=== PATIENT | female | born 1995 | race Caucasian/White ===

== ENCOUNTER 2021-12-17 18:56 | Emergency (ER) | payer OTHER, SELFPAY | END 2021-12-17 23:15 | disposition home or self-care (01) | LOC: CSHERS 18:56 | DX: O20.0 Threatened abortion (principal); O99.331 Smoking (tobacco) complicating pregnancy, first trimester; F17.290 Nicotine dependence, other tobacco product, uncomplicated; Z3A.10 10 weeks gestation of pregnancy | CPT/HCPCS: 36415; 76856; 84702; 93976 ==

== ENCOUNTER 2022-06-30 10:08 | Inpatient (IN) | payer OTHER ==
[2022-06-30] MEDS ORDERED: NS w/ Oxytocin 30 units 500 ML IV SCH ×3 (11:02→19:16)
[2022-06-30] MEDS ORDERED: Misoprostol 200 MCG TAB PR PRN ×2 (11:02→19:16)
[2022-06-30] MEDS ORDERED: Zolpidem Tartrate 5 MG TAB PO PRN (11:02)
[2022-06-30] MEDS ORDERED: Lidocaine 1% (PF) 30 ML VIAL SC PRN (11:02)
[2022-06-30] MEDS ORDERED: hydrALAZINE 20 MG/ML VIAL SLOW IVP PRN ×2 (11:02→19:16)
[2022-06-30] MEDS ORDERED: Docusate 100 MG CAP PO PRN (11:02)
[2022-06-30] MEDS ORDERED: Ibuprofen 800 MG TAB PO PRN (11:02)
[2022-06-30] MEDS ORDERED: Butorphanol Tartrate 1 MG/ML VIAL SLOW IVP PRN (11:02)
[2022-06-30] MEDS ORDERED: Carboprost 250 MCG/ML AMP IM PRN (11:02)
[2022-06-30] MEDS ORDERED: Lactated Ringer's 1,000 ML IV SCH (11:02)
[2022-06-30] MEDS ORDERED: HYDROcodone/Acetaminophen 5/325 mg Tablet PO PRN ×2 (11:02)
[2022-06-30] MEDS ORDERED: Acetaminophen 500 MG TAB PO PRN (11:02)
[2022-06-30] MEDS ORDERED: Diphenoxylate HCl/Atropine Tablet PO PRN ×2 (11:02)
[2022-06-30] MEDS ORDERED: Promethazine HCl 25 MG/ML VIAL IM PRN ×3 (11:02→19:16)
[2022-06-30] MEDS ORDERED: Ondansetron PF 4 MG/2 ML Vial IVP PRN ×3 (11:02→19:16)
[2022-06-30] MEDS ORDERED: Misoprostol 100 MCG TAB VAG SCH (11:02)
[2022-06-30 11:11] VITALS: BMI 27.6
[2022-06-30 11:45] LABS: Mean Corpuscular Hemoglobin 30.5 pg (27.0-33.0); Mean Corpuscular Volume 89.8 fl (81.6-98.3); Mean Platelet Volume 11.1 fl (7.4-10.4); Platelet Count 282 10x3/uL (150-450); RBC Distribution Width 13.3 % (11.5-14.5); Red Blood Cell (RBC) Count 3.61 10x6/uL (3.90-5.03); White Blood Cell (WBC) Count 11.4 10x3/uL (3.5-10.5)
[2022-06-30 12:14] LABS: Syphilis Antibody Nonreactive (Nonreactive); Syphilis Antibody Index 0.03 S/CO (<1.00 Non-Reactive)
[2022-06-30 12:17] LABS: HBSAg Index 0.15 S/CO (0-0.99); HIV (1/2) Antibody/Antigen Non-Reactive (NonReactive); HIV 1/2 INDEX 0.09 S/CO (<1.00); Hep B Surf Ag Non-Reactive S/CO (NonReactive)
[2022-06-30] MEDS ORDERED: Ketorolac Tromethamine 30 MG/ML VIAL ONE (14:50)
[2022-06-30] MEDS ORDERED: Oxytocin 10 UNITS/ML VIAL ONE (14:50)
[2022-06-30] MEDS ORDERED: Phenylephrine 40 MG/NS 250 ML 250 ML ONE (14:50)
[2022-06-30] MEDS ORDERED: Ondansetron PF 4 MG/2 ML Vial ONE (14:50)
[2022-06-30] MEDS ORDERED: ePHEDrine Sulfate 50 MG/10 ML VIAL ONE (14:51)
[2022-06-30] MEDS ORDERED: Morphine PF 10 MG/10 ML VIAL ONE (15:01)
[2022-06-30] MEDS ORDERED: Dexamethasone 4 mg/ml Vial ONE (15:51)
[2022-06-30] MEDS ORDERED: Moisturizing Cream (Eucerin) 113 GM JAR TOP PRN (16:51)
[2022-06-30] MEDS ORDERED: Naloxone HCl 0.4 mg/ml Vial IVP PRN ×2 (16:51)
[2022-06-30] MEDS ORDERED: diphenhydrAMINE 50 MG/ML VIAL IVP PRN (16:51)
[2022-06-30] MEDS ORDERED: Promethazine HCl 25 MG SUPP PR PRN (16:51)
[2022-06-30] MEDS ORDERED: Fentanyl 100 MCG/2 ML VIAL SLOW IVP PRN (16:51)
[2022-06-30] MEDS ORDERED: Naloxone HCl 0.4 mg/ml Vial IV PRN (16:51)
[2022-06-30] MEDS ORDERED: Meperidine HCl/PF 25 MG/ML VIAL SLOW IVP PRN (16:51)
[2022-06-30] MEDS ORDERED: Communication Order-Pharmacy FS SCH (17:00)
[2022-06-30] MEDS ORDERED: Acetaminophen 325 MG TAB PO PRN (19:16)
[2022-06-30] MEDS ORDERED: diphenhydrAMINE 25 MG CAP PO PRN (19:16)
[2022-06-30] MEDS ORDERED: Boostrix 0.5 ML (Tdap) VIAL (>/=7 yrs of age) IM ONE (19:16)
[2022-06-30] MEDS ORDERED: Bisacodyl 10 MG SUPP PR PRN (19:16)
[2022-06-30] MEDS: Ketorolac Tromethamine 30 MG/ML VIAL IVP PRN (19:36)
[2022-06-30] MEDS: Lactated Ringer's 1,000 ML IV SCH (20:32)
[2022-06-30] MEDS: Docusate 100 MG CAP PO SCH (23:25)
[2022-06-30] MEDS: Ferrous Sulfate 325 MG TAB PO SCH (23:25)
[2022-07-01] MEDS: Lactated Ringer's 1,000 ML IV SCH ×3 (04:21→19:16)
[2022-07-01 04:54] LABS: Hemoglobin 8.8 g/dL (12.0-15.5); Mean Corpuscular HGB CONC 33.2 g/dL (32.0-36.0); Mean Corpuscular Hemoglobin 30.3 pg (27.0-33.0); Mean Corpuscular Volume 91.4 fl (81.6-98.3); Mean Platelet Volume 11.1 fl (7.4-10.4); Platelet Count 257 10x3/uL (150-450); RBC Distribution Width 13.2 % (11.5-14.5); White Blood Cell (WBC) Count 16.3 10x3/uL (3.5-10.5)
[2022-07-01] MEDS ORDERED: Zolpidem Tartrate 5 MG TAB PO PRN (05:00)
[2022-07-01] MEDS ORDERED: Butorphanol Tartrate 1 MG/ML VIAL SLOW IVP PRN (05:00)
[2022-07-01] MEDS: Ketorolac Tromethamine 30 MG/ML VIAL IVP PRN ×2 (06:07→12:07)
[2022-07-01] MEDS: Ferrous Sulfate 325 MG TAB PO SCH (08:54)
[2022-07-01] MEDS: Prenatal Vitamin 1 TAB PO SCH (08:54)
[2022-07-01] MEDS: Docusate 100 MG CAP PO SCH ×2 (08:54→22:03)
[2022-07-01] MEDS: Simethicone Chewable 80 MG TAB PO PRN ×2 (18:11→22:08)
[2022-07-01] MEDS: HYDROcodone/Acetaminophen 5/325 mg Tablet PO PRN ×2 (18:11→22:04)
[2022-07-01] MEDS: Ibuprofen 800 MG TAB PO SCH (22:03)
[2022-07-01] MEDS ORDERED: Fioricet 325/50/40 mg Tablet PO PRN ×2 (23:15→23:18)
[2022-07-02] MEDS: Ibuprofen 800 MG TAB PO SCH ×3 (04:57→21:16)
[2022-07-02] MEDS: HYDROcodone/Acetaminophen 5/325 mg Tablet PO PRN ×2 (08:21→12:46)
[2022-07-02] MEDS: Ferrous Sulfate 325 MG TAB PO SCH ×3 (08:21→21:15)
[2022-07-02] MEDS: Prenatal Vitamin 1 TAB PO SCH (08:21)
[2022-07-02] MEDS: Docusate 100 MG CAP PO SCH ×2 (08:21→21:15)
[2022-07-02] MEDS: Simethicone Chewable 80 MG TAB PO PRN (11:15)
[2022-07-03] MEDS: Ibuprofen 800 MG TAB PO SCH ×2 (05:24→14:36)
[2022-07-03] MEDS: Lactated Ringer's 1,000 ML IV SCH ×2 (07:38→15:43)
[2022-07-03 07:51] VITALS: BP 111/64; TEMP 98.1
[2022-07-03] MEDS: Ferrous Sulfate 325 MG TAB PO SCH (07:57)
[2022-07-03] MEDS: Docusate 100 MG CAP PO SCH (07:58)
[2022-07-03] MEDS: Prenatal Vitamin 1 TAB PO SCH (09:12)
== END 2022-07-03 18:07 | disposition home or self-care (01) | DRG 787 ==
LOC: CSHLD 10:08 → CSHPP 19:55
PROVIDERS: ADMIT Obstetrics & Gynecology; ATTEND Obstetrics & Gynecology
PROC: 10D00Z1 Extraction of Products of Conception, Low, Open Approach (ICD-10-PCS; principal; 2022-06-30)
PROC: 3E0P05Z Introduction of Adhesion Barrier into Female Reproductive, Open Approach (ICD-10-PCS; 2022-06-30)
PROC: 3E0P7VZ Introduction of Hormone into Female Reproductive, Via Natural or Artificial Opening (ICD-10-PCS; 2022-06-30)
DX: O41.03X0 Oligohydramnios, third trimester, not applicable or unspecified (principal); D62 Acute posthemorrhagic anemia; O69.1XX0 Labor and delivery complicated by cord around neck, with compression, not applicable or unspecified; Z37.0 Single live birth; O76 Abnormality in fetal heart rate and rhythm complicating labor and delivery; O90.81 Anemia of the puerperium; O36.5930 Maternal care for other known or suspected poor fetal growth, third trimester, not applicable or unspecified; Z3A.37 37 weeks gestation of pregnancy; Z79.899 Other long term (current) drug therapy; O43.893 Other placental disorders, third trimester
CPT/HCPCS: 36415; 51702; 85027; 86780; 86850; 86900; 86901; 87340; 87389; 88307; J1100; J1200; J1885; J2274; J2405; J2590